=== PATIENT | male | born 1955 | race Caucasian/White ===

== ENCOUNTER 2018-06-19 06:19 | Day surgery (SDC) | payer OTHER ==
[2018-06-16 10:48] VITALS: BMI 30.9
[2018-06-19] MEDS ORDERED: Oxymetazoline HCl 0.05% ( 15 ML ) ONE ×2 (06:32→06:44)
[2018-06-19] MEDS ORDERED: Lidocaine 1% w/Epinephrine 1:100K 20 ML VIAL ONE (06:44)
[2018-06-19] MEDS ORDERED: Fentanyl 100 MCG/2 ML VIAL ONE ×2 (06:48→09:03)
[2018-06-19] MEDS ORDERED: Famotidine/PF 20 mg/2ml Vial ONE (06:48)
[2018-06-19] MEDS ORDERED: Bacitracin Zinc Ointment 30 gm TUBE ONE (08:00)
[2018-06-19] MEDS ORDERED: Hydrocodone-Acetamin 15 ML UDCUP ONE (10:23)
[2018-06-19] MEDS ORDERED: Succinylcholine Chloride 20 MG/ML 10 ml SYRINGE FS ONE (14:06)
[2018-06-19] MEDS ORDERED: PROPOFOL 200 MG/20 ML VIAL ONE (14:06)
[2018-06-19] MEDS ORDERED: Ondansetron PF 4 MG/2 ML Vial ONE (14:06)
[2018-06-19] MEDS ORDERED: Lidocaine 1% PF 5 ML VIAL ONE (14:06)
[2018-06-19] MEDS ORDERED: Dexamethasone 20 MG/5 ML VIAL ONE (14:06)
--- NOTE | 2018-06-19 15:17 | OP ---
DATE OF PROCEDURE: 06/19/2018 PREOPERATIVE DIAGNOSES: 1. Bilateral severe nasal polyposis. 2. Allergic fungal sinusitis. 3. Chronic pansinusitis. 4. Nasal septal deviation. 5. Bilateral inferior turbinate hypertrophy. POSTOPERATIVE DIAGNOSES: 1. Bilateral severe nasal polyposis. 2. Allergic fungal sinusitis. 3. Chronic pansinusitis. 4. Nasal septal deviation. 5. Bilateral inferior turbinate hypertrophy. PROCEDURES PERFORMED: 1. Bilateral endoscopic sinus surgery, total ethmoidectomies. 2. Bilateral endoscopic sinus surgery maxillary antrostomy with removal of tissue. 3. Bilateral endoscopic sinus surgery frontal sinusotomy with removal of tissue. 4. Bilateral endoscopic sinus surgery sphenoidotomies with removal of tissues. 5. Nasal septoplasty. 6. Bilateral inferior turbinate submucosal resection. ESTIMATED BLOOD LOSS: 50 mL. COMPLICATIONS: None. ANESTHESIA: GETA. DESCRIPTION OF PROCEDURE: Patient was taken to the operating room and placed supine on the table. General endotracheal anesthesia was obtained by the anesthesia staff. Tube was secured in the left lower lip. Patient was then placed in the beach chair position, and Afrin pledgets were placed in the nasal cavity. Injections of 1% lidocaine with 1:100,000 epinephrine were made into the nasal septum as well as the inferior turbinates. Patient was then prepped and draped in standard surgical fashion for nasal surgery. Following this, the Afrin pledgets were removed. A [place] incision was made on the left nasal septum. Submucoperichondrial dissection was performed. The deviated portions of the septum included portions of the cartilage and the bony septum. These isolated areas were removed using 3 cutting rongeurs. There was noted to be a large dorsal and caudal strut, left intact for support of the nose. The mucoperichondrial flaps were then reapproximated using a 4-0 gut stitch. Any straight pieces of cartilage were crushed prior to this and placed between the mucoperichondrial flaps. Following this, the inferior turbinates were then punctured with a submucosal coblation wand, and submucosal coblations were performed of multiple areas of the inferior portion of the anterior inferior turbinate. Please note that the submucosal microdebrider was used to submucosally resect the anterior and inferior portions of the inferior turbinates bilaterally. Following this, the inferior turbinates were gently outfractured with a [place] elevator. Following this, the middle turbinates and lateral nasal wall were injected with 1% lidocaine with one 100,000 epinephrine. There was a completely obstructing polyps in the left nasal cavity and partial obstruction on the right. The polyps on the left nasal cavity were actually hanging into the posterior choana and into the oropharynx. The nasal polyps were removed using [place] forceps, the microdebrider until the lateral wall landmarks were identified. Following this middle turbinates were gently medialized using a [place] elevator and the uncinate process was identified bilaterally and was anteriorly fractured using a ball ended probe. Following this, the uncinate process was removed using a straight microdebrider and upbiting [place] forceps. Following this, the natural maxillary sinus ostia was identified bilaterally and was widened using the curved microdebrider bilaterally. Large amounts of pus, polyps, and fungal debris was removed from the maxillary sinus ostia. Following this, ethmoidal bulla was identified bilaterally and was punctured on its medial and inferior aspect with a microdebrider and was removed using the microdebrider and upbiting [place] forceps. Following this, the grand lamella was identified and was punctured into the posterior ethmoidal cells working from posterior to anterior. The ethmoidal cells were opened using a mucosal sparing technique. Following this, the sphenoid sinus ostia was identified through the previous ethmoidectomies where the attachment of the superior turbinates to the posterior nasal wall was identified. Staying just medial and inferior to this attachment sphenoidotomies were created using the straight microdebrider and the sphenoidotomies were widened bilaterally, medially and inferiorly with the microdebrider. Following this, the 45-degree scope and the curved microdebrider were used to further open the frontal recess cells as well as identify and widen the frontal sinus ostia bilaterally. Nasal polyps and debris were removed from the frontal sinuses and sent for pathological analysis. Following this, the nasal cavity was irrigated. Mirapex was placed in the middle meatus. [place] splints were placed and secured. The patient tolerated the procedure well. Job ID: [id number]
--- NOTE | 2018-06-19 20:09 | EKG ---
Test Reason : PREOP Blood Pressure : / mmHG Vent. Rate : 062 BPM Atrial Rate : 062 BPM P-R Int : 176 ms QRS Dur : 090 ms QT Int : 430 ms P-R-T Axes : 044 055 068 degrees QTc Int : 436 ms Normal sinus rhythm Normal ECG No previous ECGs available Confirmed by DR. Sindi HAGAN MD ([id number]) on 06/19/2018 8:09:02 PM Referred By: LEONCIO Confirmed By:DR. Sindi HAGAN MD
== END 2018-06-19 10:50 | disposition home or self-care (01) ==
LOC: SDC 06:19
PROVIDERS: ATTEND Otolaryngology Plastic Surgery within the Head & Neck
PROC: 099W8ZZ Drainage of Right Sphenoid Sinus, Via Natural or Artificial Opening Endoscopic (ICD-10-PCS; principal; 2018-06-19)
PROC: 099X8ZZ Drainage of Left Sphenoid Sinus, Via Natural or Artificial Opening Endoscopic (ICD-10-PCS; principal; 2018-06-19)
PROC: 09BM0ZZ Excision of Nasal Septum, Open Approach (ICD-10-PCS; principal; 2018-06-19)
PROC: 09TL0ZZ Resection of Nasal Turbinate, Open Approach (ICD-10-PCS; principal; 2018-06-19)
PROC: 09TU8ZZ Resection of Right Ethmoid Sinus, Via Natural or Artificial Opening Endoscopic (ICD-10-PCS; principal; 2018-06-19)
PROC: 09QS8ZZ Repair Right Frontal Sinus, Via Natural or Artificial Opening Endoscopic (ICD-10-PCS; principal; 2018-06-19)
PROC: 09QT8ZZ Repair Left Frontal Sinus, Via Natural or Artificial Opening Endoscopic (ICD-10-PCS; principal; 2018-06-19)
PROC: 09TV8ZZ Resection of Left Ethmoid Sinus, Via Natural or Artificial Opening Endoscopic (ICD-10-PCS; principal; 2018-06-19)
DX: J33.9 Nasal polyp, unspecified (principal); J32.4 Chronic pansinusitis; J34.2 Deviated nasal septum; J34.3 Hypertrophy of nasal turbinates; E11.9 Type 2 diabetes mellitus without complications; Z91.018 Allergy to other foods; F17.200 Nicotine dependence, unspecified, uncomplicated; Z79.899 Other long term (current) drug therapy; Z98.890 Other specified postprocedural states
CPT/HCPCS: 88304; 93005; 93010; J0131; J1100; J2001; J2405; J2704; J3010; S0028